=== PATIENT | male | born 1950 | race Asian ===

== ENCOUNTER 2016-12-14 18:38 | Emergency (ER) | payer OTHER ==
[~2016-12-14] VITALS: Ht 177.8 cm; Wt 90.9 kg
[~2016-12-14 18:38] MED LIST: TERA5 PO
[2016-12-14] MEDS ORDERED: ACAR25TA2 PO (19:47)
[2016-12-14] MEDS ORDERED: LOSA25TA21 PO (19:47)
[2016-12-14] MEDS ORDERED: FINA5TAB41 PO (19:47)
[2016-12-14 19:52] LABS: GLUCOSE,POINT OF CARE 161 MG/DL (70-110)
[2016-12-14] MEDS ORDERED: PERTUSS(ACELL),DIPH,TET VAC/PF 0.5 ML VIAL IM ONE (22:00)
[2016-12-14] MEDS ORDERED: SILVER SULFADIAZINE 1% 20 GM CREAM TP ONE (22:00)
[2016-12-14 22:24] VITALS: BP 156/93
== END 2016-12-14 22:34 | disposition home or self-care (01) ==
LOC: EMS 18:40
DX: T21.22XA Burn of second degree of abdominal wall, initial encounter (principal); T31.0 Burns involving less than 10% of body surface; E11.9 Type 2 diabetes mellitus without complications; I10 Essential (primary) hypertension; T79.9XXA Unspecified early complication of trauma, initial encounter; X10.0XXA Contact with hot drinks, initial encounter; Y93.89 Activity, other specified; Y92.89 Other specified places as the place of occurrence of the external cause; Y99.8 Other external cause status
CPT/HCPCS: 16020; 82962; 90471; 90715; 99284; Z7610; 99283